=== PATIENT | female | born 1950 | race Caucasian/White ===

== ENCOUNTER → 2017-07-24 | Outpatient (CLI) | payer MEDICARE, MEDICAID ==
[~2017-07-24] MED LIST: ACET-1600 PO; AMLO5TAB2 PO; AURYXIA PO; INSU100V13 SQ-INSULIN; IRON PO; ONDA4TAB7 PO; PARO20TA4 PO; VITA150T PO
[2017-07-24 16:00] LABS: HEMATOCRIT 40.2 % (34.6-47.8); HEMOGLOBIN 13.3 g/dL (11.7-16.4); WHITE BLOOD COUNT 6.2 x10^3/uL (3.4-10)
[2017-07-24 16:11] LABS: BLOOD UREA NITROGEN 36 mg/dL (7-18)
[2017-07-24 16:13] LABS: ASPARTATE AMINO TRANSFERASE 12 U/L (15-37)
== END | disposition home or self-care (01) ==
LOC: STAR 14:47
PROVIDERS: ATTEND Urology
DX: Z01.818 Encounter for other preprocedural examination (principal); N19 Unspecified kidney failure; R82.79 Other abnormal findings on microbiological examination of urine
CPT/HCPCS: 36415; 80053; 81001; 85025; 85610; 85730; 87086; 87186; 93005

== ENCOUNTER 2017-07-28 06:03 | Day surgery (SDC) | payer MEDICARE, MEDICAID ==
[~2017-07-28] VITALS: Ht 165.1 cm; Wt 57.2 kg
[2017-07-28] MEDS ORDERED: LACTATED RINGERS 1,000 ML IV SCH (06:55)
[2017-07-28 06:58] VITALS: BP 137/82
[2017-07-28] MEDS ORDERED: SODIUM CHLORIDE 0.9% 1,000 ML IV SCH (07:26)
[2017-07-28] MEDS ORDERED: FENTANYL PF 100 MCG/2ML ONE (07:34)
[2017-07-28] MEDS ORDERED: ONDANSETRON 2MG/ML, 2ML ONE (07:41)
[2017-07-28] MEDS ORDERED: ROCURONIUM 10 MG/ML ONE (07:41)
[2017-07-28] MEDS ORDERED: METOPROLOL 1 MG/ML, 5ML ONE (07:41)
[2017-07-28] MEDS ORDERED: CIPROFLOXACIN 400MG/200ML PMX ONE (07:41)
[2017-07-28] MEDS ORDERED: PROPOFOL 10 MG/ML, 20ML ONE (07:41)
[2017-07-28] MEDS ORDERED: ONDANSETRON 2MG/ML, 2ML IVPush PRN (08:00)
[2017-07-28] MEDS ORDERED: FENTANYL PF 100 MCG/2ML IV PRN (08:00)
[2017-07-28] MEDS ORDERED: HYDROmorphone 1 MG/ML, 1ML IV PRN (08:00)
[2017-07-28] MEDS ORDERED: hydrALAzine 20 MG/ML, 1ML IV PRN (08:00)
[2017-07-28] MEDS ORDERED: MIDAZOLAM 1 MG/ML, 2ML IV PRN (08:00)
[2017-07-28] MEDS ORDERED: PROMETHAZINE 25 MG/ML, 1ML IV PRN (08:00)
[2017-07-28] MEDS ORDERED: OXYcodone 5 MG/5 ML ORAL.SOL UDC PO PRN (08:00)
[2017-07-28] MEDS ORDERED: LABETALOL 5MG/ML, 20ML IV PRN (08:00)
[2017-07-28] MEDS ORDERED: ACETAMINOPHEN 325 MG TABLET PO PRN (08:00)
[2017-07-28] MEDS ORDERED: OXYcodone 5 MG/5 ML ORAL.SOL UDC ONE (08:29)
== END 2017-07-28 10:30 ==
LOC: OUT 06:03
PROVIDERS: ATTEND Urology
DX: N18.6 End stage renal disease (principal); N13.5 Crossing vessel and stricture of ureter without hydronephrosis; Z99.2 Dependence on renal dialysis; E11.22 Type 2 diabetes mellitus with diabetic chronic kidney disease; I12.0 Hypertensive chronic kidney disease with stage 5 chronic kidney disease or end stage renal disease; Z79.4 Long term (current) use of insulin; E78.2 Mixed hyperlipidemia; Z87.440 Personal history of urinary (tract) infections; Z90.49 Acquired absence of other specified parts of digestive tract; Z98.890 Other specified postprocedural states; Z88.1 Allergy status to other antibiotic agents
CPT/HCPCS: 36415; 52332; 74000; 76000; 80047; 82962; C1758; C1769; C2617; J0744; J2405; J2704; J3010; J7030